=== PATIENT | female | born 1985 ===

== ENCOUNTER 2019-05-07 05:42 | Day surgery (SDC) | payer OTHER ==
[~2019-05-07 05:42] MED LIST: PRENATAL CAPLE1 EACH PO
== END 2019-05-07 14:40 | disposition home health service (06) ==
LOC: CIR.AMB 05:42
DX: N84.0 Polyp of corpus uteri (principal)

== ENCOUNTER 2019-05-24 07:52 | Emergency (ER) | payer OTHER ==
[~2019-05-24] VITALS: Ht 157.5 cm; Wt 64.0 kg
== END 2019-05-24 09:00 | disposition home or self-care (01) ==
LOC: ER 07:52
DX: J31.2 Chronic pharyngitis (principal); B34.9 Viral infection, unspecified

== ENCOUNTER 2022-07-11 22:40 | Emergency (ER) | payer OTHER ==
[~2022-07-11] VITALS: Ht 157.5 cm; Wt 71.7 kg
[2022-07-12] MEDS ORDERED: ZYNCOF 20-400120 ML PO (03:49)
== END 2022-07-12 04:24 ==
LOC: ER 22:40
DX: R05.9 Cough, unspecified (principal); Z20.822 Contact with and (suspected) exposure to COVID-19